=== PATIENT | female | born 1950 | race Hispanic/Latino ===

== ENCOUNTER 2022-05-22 19:20 | Emergency (ER) | payer OTHER ==
[~2022-05-22] VITALS: Ht 144.8 cm; Wt 72.1 kg
[2022-05-22 19:22] VITALS: BP 151/85
[2022-05-22] MEDS ORDERED: HYDROCODONE/ACETAMINOPHEN 10/325 MG TAB PO ONE (19:30)
[2022-05-22] MEDS ORDERED: KETOROLAC 60 MG VIAL (30MG/ML) IM ONE (19:30)
[2022-05-22] MEDS ORDERED: TRAM1TAB2 PO (19:52)
== END 2022-05-22 20:22 | disposition home or self-care (01) ==
LOC: EDH 19:20
DX: M17.12 Unilateral primary osteoarthritis, left knee (principal); E11.9 Type 2 diabetes mellitus without complications; E78.00 Pure hypercholesterolemia, unspecified; I10 Essential (primary) hypertension; Z79.899 Other long term (current) drug therapy
CPT/HCPCS: 99283; 73562; 96372; J1885

== ENCOUNTER 2022-08-27 16:12 | Emergency (ER) | payer OTHER ==
[~2022-08-27] VITALS: Ht 149.9 cm; Wt 72.1 kg
[~2022-08-27 16:12] MED LIST: TRAM1TAB2 PO
[2022-08-27] MEDS ORDERED: ACETAMINOPHEN 500 MG TABLET PO ONE (16:30)
[2022-08-27 16:43] LABS: BASOPHILS % (AUTO) 0.7 % (0.0-5.0); EOSINOPHILS % (AUTO) 3.8 % (0.0-8.0); HEMATOCRIT 37.1 % (36-48); LYMPHOCYTES % (AUTO) 25.1 % (21.0-51.0); MEAN CORPUSCULAR HEMOGLOBIN 26.3 pg (27.0-33.0); MEAN CORPUSCULAR HGB CONC 33.2 g/dL (32.0-36.0); MEAN CORPUSCULAR VOLUME 79.3 fL (79-99); MONOCYTES % (AUTO) 6.9 % (3.0-13.0); NEUTROPHILS % (AUTO) 62.6 % (40.0-77.0); PLATELET COUNT (AUTO) 316 K/uL (130-400); RED BLOOD CELL COUNT(AUTO) 4.68 MIL/uL (4.00-5.50); RED CELL DISTRIBUTION WIDTH 14.4 % (11.0-15.5); WHITE BLOOD COUNT (AUTO) 13.7 K/uL (4.8-10.8)
[2022-08-27] MEDS ORDERED: INSULIN HUMULIN R 100 UNIT/ML 3ML ONE (16:44)
[2022-08-27] MEDS ORDERED: 0.9%NACL 1000ML 1,000 ML IV ONE (16:45)
[2022-08-27 16:49] LABS: APPEARANCE,URINE CLEAR (CLEAR); BILIRUBIN,URINE NEGATIVE (NEGATIVE); COLOR,URINE LIGHT-YELLOW (YELLOW); GLUCOSE, URINE (UA) >=1000 mg/dL (NEGATIVE); KETONES,URINE NEGATIVE (NEGATIVE); LEUKOCYTE ESTERASE ,URINE 25 Leu/uL (NEGATIVE); NITRATE,URINE NEGATIVE (NEGATIVE); OCCULT BLOOD,URINE NEGATIVE (NEGATIVE); PROTEIN,URINE NEGATIVE (NEGATIVE); UROBILINOGEN,URINE 0.2 mg/dL (0.2-1.0)
[2022-08-27] MEDS ORDERED: INSULIN HUMULIN R 100 UNIT/ML 3ML IV ONE (17:00)
[2022-08-27] MEDS ORDERED: 0.9%NACL 1000ML 1,000 ML IV SCH (17:00)
[2022-08-27 17:02] LABS: ALBUMIN 3.6 g/dL (3.5-5.0); CREATININE 1.8 mg/dL (0.5-1.5); POTASSIUM 3.7 mmol/L (3.5-5.1); TOTAL PROTEIN, SERUM 7.6 g/dL (6.0-8.3)
[2022-08-27 17:04] LABS: BACTERIA,URINE RARE /HPF (None Seen); MUCUS,URINE RARE LPF (None Seen); SQUAMOUS EPITHELIAL CELL,UR RARE /HPF (0-2)
[2022-08-27] MEDS ORDERED: CEFTRIAXONE 1G VIAL ONE (17:26)
[2022-08-27] MEDS ORDERED: LORAZEPAM 2 MG/ML 1 ML VIAL ONE (17:30)
[2022-08-27] MEDS ORDERED: LORAZEPAM 2 MG/ML 1 ML VIAL IVP ONE (17:30)
[2022-08-27] MEDS ORDERED: CEFTRIAXONE 1G VIAL IVP ONE (17:30)
[2022-08-27] MEDS ORDERED: 0.9% NACL 500ML IV.SOLN 500 ML IV ONE (17:30)
[2022-08-27] MEDS ORDERED: CEPH500B PO (17:55)
[2022-08-27 18:00] VITALS: BP 147/74
== END 2022-08-27 18:16 | disposition home or self-care (01) ==
LOC: EDH 16:12
DX: E11.65 Type 2 diabetes mellitus with hyperglycemia (principal); N39.0 Urinary tract infection, site not specified; F41.9 Anxiety disorder, unspecified; Z20.822 Contact with and (suspected) exposure to COVID-19; E78.00 Pure hypercholesterolemia, unspecified; I10 Essential (primary) hypertension; E66.9 Obesity, unspecified; Z68.32 Body mass index [BMI] 32.0-32.9, adult
CPT/HCPCS: 99284; 96374; 96375; 87635; 96361; 80053; 85025; 87077; 87088; 87186; 87804 ×2; 82948 ×2; 82010; 81001; 36415; J1815; C9803; J7030; J0696; J2060